=== PATIENT | female | born 1965 | race Caucasian/White ===

== ENCOUNTER 2016-10-01 12:25 | Observation (INO) | payer OTHER ==
[~2016-10-01] VITALS: Ht 162.6 cm; Wt 56.7 kg
[~2016-10-01 12:25] MED LIST: DIAZ10TA PO; MILK150C2 PO; MULT-658 PO; PEPP90CA PO; PRED20TA PO; [UNRECOGNIZED DRUG - CODE] PO; ared PO
[2016-10-01] MEDS ORDERED: SODIUM CHLORIDE FLUSH 10ML SYR IVF ONE (13:30)
[2016-10-01] MEDS ORDERED: SODIUM CHLORIDE 0.9% 1,000ML IVBOLUS ONE (13:30)
[2016-10-01 14:01] LABS: ASPARTATE AMINO TRANSFERASE 17 U/L (15-37); BLOOD UREA NITROGEN 15 mg/dL (7-18)
[2016-10-01 14:14] LABS: IS PT STATUS REG ER OR PRE ER? YES
[2016-10-01] MEDS ORDERED: OMNIPAQUE 350 MG/ML, 100ML BOTTLE ONE (15:25)
[2016-10-01] MEDS ORDERED: HYDROcodone/APAP 5/325 TABLET PO PRN (17:00)
[2016-10-01] MEDS ORDERED: DOCUSATE 100 MG CAPSULE PO PRN (17:00)
[2016-10-01] MEDS ORDERED: ACETAMINOPHEN 325 MG TABLET PO PRN (17:00)
[2016-10-01] MEDS ORDERED: NITROGLYCERIN 0.4 MG BOTTLE (25 TABS) SL PRN (17:00)
[2016-10-01] MEDS ORDERED: BISACODYL 10 MG SUPP PR PRN (17:00)
[2016-10-01] MEDS ORDERED: ONDANSETRON 2MG/ML, 2ML IVPush PRN (17:00)
[2016-10-01] MEDS ORDERED: LABETALOL 5MG/ML 40ML VIAL IVPush PRN (17:00)
[2016-10-01] MEDS ORDERED: morphine SULFATE 10 MG/ML, 1ML IVPush PRN (17:00)
[2016-10-01] MEDS ORDERED: POLYETHYLENE GLYCOL 17 GM PACKET PO PRN (17:00)
[2016-10-01] MEDS ORDERED: ENOXAPARIN 40 MG/0.4 ML SQ SCH (18:00)
[2016-10-01 18:01] VITALS: BP 111/63
[2016-10-01 20:22] VITALS: BP 95/52
[2016-10-01] MEDS: CEFDINIR 300 MG CAPSULE PO SCH (20:25)
[2016-10-01] MEDS: DOXYCYCLINE 100MG TABLET PO SCH (20:25)
[2016-10-01] MEDS: SODIUM CHLORIDE FLUSH 10ML SYR IVF SCH (20:25)
[2016-10-01 20:38] LABS: IS PT STATUS REG ER OR PRE ER? NO
[2016-10-02 01:15] LABS: IS PT STATUS REG ER OR PRE ER? NO
[2016-10-02 01:46] VITALS: BP 92/55
[2016-10-02] MEDS ORDERED: ASPIRIN 325 MG TABLET EC PO SCH (06:00)
[2016-10-02 07:08] VITALS: BP 104/65
[2016-10-02] MEDS: SODIUM CHLORIDE FLUSH 10ML SYR IVF SCH (08:13)
[2016-10-02] MEDS: DOXYCYCLINE 100MG TABLET PO SCH (08:13)
[2016-10-02] MEDS: CEFDINIR 300 MG CAPSULE PO SCH (08:13)
[2016-10-02 13:24] VITALS: BP 89/58
[2016-10-02] MEDS ORDERED: CEFD300C37 PO (14:34)
[2016-10-02] MEDS ORDERED: DOXY100T PO (14:34)
== END 2016-10-02 15:15 | disposition home or self-care (01) ==
LOC: ED 16:04 → INTOOBSV 16:05 → EDIP 16:05 → ED 16:05 → 5SO 17:39 → DCLOUNGE 10-02 14:53
DX: R07.2 Precordial pain (principal); J20.9 Acute bronchitis, unspecified; R06.02 Shortness of breath; R11.0 Nausea; Z72.0 Tobacco use
CPT/HCPCS: 36415; 71010; 71275; 78452; 80053; 80061; 83880; 84484; 85025; 85610; 85730; 93005; 93017; 96360; 96372; 99285; A9502; C9898; G0378; J1650; J7030; Q9967